=== PATIENT | male | born 1950 | race Caucasian/White ===

== ENCOUNTER → 2018-07-05 | Outpatient (CLI) | payer MEDICARE ==
--- NOTE | 2018-07-06 10:28 | RADONC ---
RADIATION ONCOLOGY CONSULTATION NOTE DATE: 07/05/2018 CHART NUMBER: [id number] DIAGNOSIS: Prostate cancer. STAGE: III B, pT3a, N0, M0, Bally score 7 (4-3), grade group 3, PSA 5.5. ECOG PERFORMANCE STATUS: 0 CONSULTATION NOTE: Mr. Porter is a very pleasant 68-year-old white male with the diagnosis of what appears to be a stage III B, pT3a, N0, M0 moderate to poorly differentiated Bally score 7 (4-3) adenocarcinoma of the prostate with an initial PSA level of 5.5, who is presenting to [facility] status post robotic-assisted radical prostatectomy and lymph node sampling for consideration of postoperative radiation therapy in attempt to increase the likelihood of achieving local control and cure. HISTORY OF PRESENT ILLNESS: The patient was in his usual state of health until he was found to have a PSA level of 5.5. On 10/18/2017, the patient underwent prostatic needle biopsy and pathology revealed a Jhony score 7 (4-3) adenocarcinoma of the prostate involving his left side. All right-sided biopsies appeared to be benign. On 01/20/2018, the patient underwent a robotic prostatectomy and bilateral pelvic lymph node dissection with Dr. Ray Sánchez. Pathology revealed once again a moderate to poorly differentiated Bally score 7 (4-3) adenocarcinoma grade group 3. There was noted to be extracapsular extension present. Seminal vesicles were not involved. The margins of resection were also negative for malignancy. A total of five lymph nodes were sampled and all were negative for malignancy. The tumor was staged as a pT3A tumor with extraprostatic extension present. Following surgery a PSA level done on 03/15/2018 was 0.05. One done on 06/14/2018 was 0.06. The patient was subsequently referred to Dr. Sauceda for discussion of possible postoperative radiation therapy in attempt to increase the likelihood of achieving local control. He was deemed a candidate for this therapy and had been scheduled for simulation tomorrow. The patient reported that he did not wish to travel so far to undergo treatment in [place] and has therefore requested that his treatments be done here. This is why he is appearing to [facility] for re-consultation. PAST MEDICAL HISTORY: The patient's past medical history is positive for arthritis, hypertension and cataracts. ALLERGIES: The patient has NO KNOWN DRUG ALLERGIES. SOCIAL HISTORY: The patient does not smoke cigarettes. He drinks alcohol socially. FAMILY HISTORY: The patient's family history is positive for a father with kidney cancer. REVIEW OF SYSTEMS: The patient's review of systems is noncontributory. Denies nausea, vomiting, fevers, chills, night sweats, diplopia, headaches, anxiety or depression, anorexia, weight loss, visual disturbances, chest pain, urinary or bowel difficulties, bone pain, or neurological problems. PHYSICAL EXAMINATION: The patient is a well-developed, well-nourished male in no acute distress. HEENT exam is normocephalic, atraumatic. Extraocular movements are intact. There is no palpable cervical, supraclavicular, infraclavicular, axillary, or inguinal lymphadenopathy present. Lungs are clear to auscultation and percussion. Heart has a regular rate and rhythm. Abdomen is benign with no hepatosplenomegaly, masses, or tenderness. Rectal examination reveals a normal anal sphincter tone. His prostate bed is smooth with no evidence of nodularity or recurrent disease. Skeletal examination reveals no tenderness to pressure or percussion of the bony skeleton. Extremities reveal no clubbing, cyanosis, or edema. Neurologic exam is grossly intact, as is the remainder of the physical examination. ASSESSMENT: I do agree with the physicians at [facility] that this patient would be a candidate for postoperative radiation therapy. Indeed, he has a grade group 3 disease. There is noted to be extraprostatic extension focally in the left posterior location. His PSA did not become undetectable. These risk factors would qualify him as a candidate for external beam radiation therapy. The patient reports that he is going to be on vacation until 07/18/2018 or so, and therefore, I am scheduling him to initiate treatment planning when he returns. I have reassured him that the physicians at [facility] are of the highest quality, but I understand his reasoning not wishing to make such a long trip every day for all that time. Thank you for allowing us to participate in the care of this very pleasant gentleman. If I could be of any further assistance or provide you with any information, please feel free to contact me at anytime. As always, warm regards nausea. cc: MD Nicanor Breen MD Shirley Tuttle-Malone, DO
== END ==
LOC: M ONCR 09:46
PROVIDERS: ATTEND Radiology Radiation Oncology
DX: Z85.46 Personal history of malignant neoplasm of prostate (principal)

== ENCOUNTER → 2018-08-02 | Outpatient (RCR) | payer MEDICARE ==
[2018-07-18 09:44] LABS: HEMATOCRIT 45.4 % (42.0-52.0); HEMOGLOBIN 15.8 g/dl (13.5-17.5); LYMPH % 32.7 % (24.0-44.0); MEAN CORPUSCULAR HEMOGLOBIN 30.6 pg (27.0-33.0); MEAN CORPUSCULAR HGB CONC 34.8 g/dl (32.0-36.5); MEAN CORPUSCULAR VOLUME 87.9 fl (80.0-96.0); NEUTROPHILS # 4.3 10^3/uL (1.8-7.7); NEUTROPHILS % 56.7 % (36.0-66.0); RED BLOOD COUNT 5.17 10^6/uL (4.30-6.10); WHITE BLOOD COUNT 7.5 10^3/uL (4.0-10.0)
--- NOTE | 2018-07-18 09:59 | RADONC ---
RADIATION ONCOLOGY SIMULATION NOTE DATE: 07/18/2018 CHART NUMBER: [id number] DIAGNOSIS: Prostate cancer. STAGE: IIIB, pathologic T3a, N0, M0, Jhony score 7 (4+3), grade group 3, PSA 5.5. ECOG PERFORMANCE STATUS: 0 SIMULATION NOTE: The patient was placed in a supine position on the CT simulator table and an immobilization device was constructed to stabilize and immobilize the patient for day-to-day treatments. He tolerated this procedure without any untoward side effects. The patient was then scanned at 3 mm intervals through the pelvic area. Contouring will be performed on the images scanned and a treatment plan will be generated with treatments beginning after completion of his treatment plan. cc: MD Nicanor Breen MD Shirley Tuttle-Malone, DO MTDD
--- NOTE | 2018-08-03 08:30 | RADONC ---
RADIATION ONCOLOGY PROGRESS NOTE DATE: 08/01/2018 CHART NUMBER: [id number] Mr. Porter is presently a dose of 720 cGy to his prostate bed and is tolerating treatments quite well at this point with no complaints related to his radiation therapy. He is having no urinary or bowel difficulties and no bone pain. REVIEW OF SYSTEMS: The patient's review of systems is noncontributory. Denies nausea, vomiting, fevers, chills, night sweats, diplopia, headaches, anxiety or depression, anorexia, weight loss, visual disturbances, chest pain, urinary or bowel difficulties, bone pain, or neurological problems. PHYSICAL EXAMINATION: The patient's skin is in good condition with no evidence of moist or dry desquamation. The remainder of his physical exam remains unchanged. Mr. Porter is tolerating treatments quite well, and radiation will continue as scheduled.
== END ==
LOC: M ONCR 07-18 08:52
PROVIDERS: ATTEND Radiology Radiation Oncology
DX: C61 Malignant neoplasm of prostate (principal)

== ENCOUNTER → 2018-09-02 | Outpatient (RCR) | payer MEDICARE ==
--- NOTE | 2018-08-08 10:54 | RADONC ---
RADIATION ONCOLOGY PROGRESS NOTE DATE: 08/08/2018 CHART NUMBER: [id number] Mr. Porter is presently at a dose 1620 cGy to his prostate bed and is tolerating treatments quite well at this point with no complaints related to his radiation therapy. He is having no urinary or bowel difficulties, and no bone pain. REVIEW OF SYSTEMS: The patient's review of systems is noncontributory. He denies nausea, vomiting, fevers, chills, night sweats, diplopia, headaches, anxiety or depression, anorexia, weight loss, visual disturbances, chest pain, urinary or bowel difficulties, bone pain or neurological problems. PHYSICAL EXAMINATION: The patient's skin is in good condition with no evidence of radiation change present. The remainder of his physical exam remains unchanged. Mr. Porter is tolerating treatments quite well and radiation will continue as scheduled.
--- NOTE | 2018-08-15 10:58 | RADONC ---
RADIATION ONCOLOGY PROGRESS NOTE DATE: 08/15/2018 CHART NUMBER: [id number] PROGRESS NOTE: Mr. Porter with a diagnosis of adenocarcinoma of prostate is currently receiving postoperative radiotherapy to prevent a local regional recurrence. His dose to date is 2520 cGy of an anticipated 6660 cGy. As stated the patient feels things are going well. Review of systems reveals that the patient denies any nausea, vomiting, diarrhea, dysuria, hematuria or blood per rectum. His energy level is excellent and he is able to maintain most day-to-day activities without any alteration of his lifestyle. Skin irritation is denied. EXAMINATION FINDINGS: The skin within the irradiated volume shows no evidence of erythema and certainly no focal desquamation. The remainder of the physical examination is unchanged. IMPRESSION: Tolerating therapy well. PLAN: Treatments to continue. MTDD
--- NOTE | 2018-08-22 09:48 | RADONC ---
RADIATION ONCOLOGY PROGRESS NOTE DATE: 08/22/2018 CHART NUMBER: [id number] Mr. Porter is presently a dose of 3420 cGy to his prostate bed and is tolerating treatments quite well at this point with no complaints related to his radiation therapy. He is having no urinary or bowel difficulties. No bone pain. The patient's review of systems is noncontributory. Denies nausea, vomiting, fevers, chills, night sweats, diplopia, headaches, anxiety or depression, anorexia, weight loss, visual disturbances, chest pain, urinary or bowel difficulties, bone pain, or neurological problems. PHYSICAL EXAMINATION: The patient's skin is in good condition with no evidence of moist or dry desquamation. The remainder of his physical exam remains unchanged. Mr. Porter is tolerating treatments quite well, and radiation will continue as scheduled.
--- NOTE | 2018-08-30 09:31 | RADONC ---
RADIATION ONCOLOGY PROGRESS NOTE DATE: 08/30/2018 CHART NUMBER: [id number] Mr. Porter is presently at a dose of 4320 cGy to his prostate bed and is tolerating treatments quite well at this point with no complaints related to his radiation therapy. He is having no urinary or bowel difficulties and no bone pain. REVIEW OF SYSTEMS: The patient's review of systems is noncontributory. He denies nausea, vomiting, fevers, chills, night sweats, diplopia, headaches, anxiety or depression, anorexia, weight loss, visual disturbances, chest pain, urinary or bowel difficulties, bone pain or neurological problems. PHYSICAL EXAMINATION: The patient's skin is in good condition with no evidence of moist or dry desquamation. The remainder of his physical exam remains unchanged. Mr. Porter is tolerating treatments quite well and radiation will continue as scheduled.
[~2018-09-02] MED LIST: SILV40CR EXT
== END ==
LOC: M ONCR 08-03 12:44
PROVIDERS: ATTEND Radiology Radiation Oncology
DX: C61 Malignant neoplasm of prostate (principal)

== ENCOUNTER 2018-09-16 08:41 | Outpatient (RCR) | payer MEDICARE ==
--- NOTE | 2018-09-05 12:31 | RADONC ---
RADIATION ONCOLOGY PROGRESS NOTE DATE: 09/05/2018 CHART NUMBER: [id number] PROGRESS NOTE: Mr. Porter with a diagnosis of adenocarcinoma of the prostate is currently receiving local regional radiotherapy directed for local regional control. His current dose is 5040 centigray of an anticipated 6660 centigray. The treatments are generally been quite well tolerated as he denies any major side effects. REVIEW OF SYSTEMS: He specifically denies any nausea, vomiting, diarrhea, dysuria, hematuria or blood per rectum. His energy level is such that he is able to maintain most of his day-to-day activities without any alteration of his lifestyle. Skin irritation is denied as our issues with anxiety, depression, headaches, diplopia, night sweats, anorexia, weight loss, visual disturbances, chest pain, and other urinary or bowel difficulties. EXAMINATION FINDINGS: The skin within the irradiated volume shows no evidence of erythema and certainly no focal desquamation. The remainder of the physical examination is unchanged. IMPRESSION: Tolerating therapy well. PLAN: Treatments to continue.
--- NOTE | 2018-09-12 14:23 | RADONC ---
RADIATION ONCOLOGY PROGRESS NOTE DATE: 09/12/2018 CHART #: [id number] Mr. Porter is presently at a dose of 5940 cGy to his prostate bed and is tolerating treatments quite well at this point with no complaints related to his radiation therapy. He is having no significant urinary or bowel difficulties. No bone pain. REVIEW OF SYSTEMS: The patient's review of systems is noncontributory. Denies nausea, vomiting, fevers, chills, night sweats, diplopia, headaches, anxiety or depression, anorexia, weight loss, visual disturbances, chest pain, urinary or bowel difficulties, bone pain, or neurological problems. PHYSICAL EXAMINATION: The patient's skin is in good condition with no evidence of moist or dry desquamation. The remainder of his physical exam remains unchanged. Mr. Porter is tolerating treatments quite well and radiation will continue as scheduled.
--- NOTE | 2018-09-17 00:06 | RADONC ---
RADIATION ONCOLOGY TREATMENT SUMMARY DATE: 09/16/2018 CHART NUMBER: [id number] DIAGNOSIS: Prostate cancer. STAGE: III B, pT3a, N0, M0, Polk score 7 (4-3), grade group 3, PSA 5.5 ECOG PERFORMANCE STATUS: 0. TREATMENT SUMMARY: Mr. Porter is a very pleasant 68-year-old white male with a diagnosis of what appears to be a stage III B, pT3a, N0, M0, moderate to poorly differentiated Jhony score 7 (4-3) adenocarcinoma of the prostate with initial PSA level of 5.5 who presented to us status post robotic-assisted radical prostatectomy and lymph node sampling for consideration of postoperative radiation therapy in an attempt to increase the likelihood of achieving local control. We treated the patient to his prostate bed for a total dose of 6660 cGy delivered in 37 fractions of 180 cGy each over 51 elapsed days from 07/27/2018 through 09/16/2018. The patient's prostate bed was treated on a linear accelerator utilizing a 15 MV photon beam via a four-field technique with anterior, posterior, left and right lateral gaston. Following completion of a dose of 4500 cGy, the prostate bed was further coned down for the final 2160 cGy in order to maintain the small bowel and other structures within their tolerance limits. Mr. Porter tolerated his treatments quite well and was able to complete therapy as prescribed without interruption. I have scheduled the patient to see me again in 1 month for further followup. He will also continue to be followed by his other physicians as well. Thank you for allowing us to participate in the care of this very pleasant gentleman. If I could be of any further assistance or provide you with any information, please feel free to contact me at anytime. As always, warm regards. cc: MD Nicanor Breen MD Shirley Tuttle-Malone, DO
== END 2018-10-02 ==
LOC: M ONCR 08:41
PROVIDERS: ATTEND Radiology Radiation Oncology
DX: C61 Malignant neoplasm of prostate (principal)

== ENCOUNTER → 2018-10-19 | Outpatient (CLI) | payer MEDICARE ==
--- NOTE | 2018-10-21 08:06 | RADONC ---
RADIATION ONCOLOGY PROGRESS NOTE DATE: 10/19/2018 CHART NUMBER: [id number] DIAGNOSIS: Prostate cancer. STAGE: Stage III B, [id number] Jhony score 7 (4+3), grade group III, PSA 5.5. ECOG PERFORMANCE STATUS: 0. FOLLOWUP NOTE: Mr. Porter is a very pleasant 68-year-old white male with the diagnosis of what appears to be a stage III B, [id number], moderate to poorly differentiated [place] score 7 (3+4) adenocarcinoma of prostate with an initial PSA level 5.5 who is presenting to us today for routine followup visit 1 month post completion of external beam radiation therapy. The patient presents today reporting that he is doing quite well with no significant difficulties related to his radiation therapy. He does have some irritation still with bowel movements. The patient's review of systems is positive for is a continued slight rectal irritation, but is otherwise noncontributory. Denies nausea, vomiting, fevers, chills, night sweats, diplopia, headaches, anxiety or depression, anorexia, weight loss, visual disturbances, chest pain, urinary or bowel difficulties, bone pain, or neurological problems. PHYSICAL EXAMINATION: The patient is a well-developed, well-nourished male in no acute distress. HEENT exam is normocephalic, atraumatic. Extraocular movements are intact. There is no palpable cervical, supraclavicular, infraclavicular, axillary, or inguinal lymphadenopathy present. Lungs are clear to auscultation and percussion. Heart has a regular rate and rhythm. Abdomen is benign with no hepatosplenomegaly, masses, or tenderness. Rectal examination reveals a normal anal sphincter tone. His prostate bed is smooth with no evidence of nodularity or recurrent disease. Skeletal examination reveals no tenderness to pressure or percussion of the bony skeleton. Extremities reveal no clubbing, cyanosis, or edema. Neurologic exam is grossly intact, as is the remainder of the physical examination. ASSESSMENT: The patient is scheduled to be seen by his medical oncologist in December, and I have therefore scheduled him for a followup visit in our office next July. We will continue to follow his PSAs closely. His present PSA done on 10/14/2018 was 0.06. cc: MD Nicanor Breen MD Shirley Tuttle-Malone, DO
== END ==
LOC: M ONCR 10:12
PROVIDERS: ATTEND Radiology Radiation Oncology
DX: C61 Malignant neoplasm of prostate (principal)

== ENCOUNTER → 2019-07-26 | Outpatient (CLI) | payer MEDICARE ==
--- NOTE | 2019-07-26 10:52 | RADONC ---
RADIATION ONCOLOGY FOLLOWUP NOTE DATE: 07/26/2019 This is a telemedicine visit. The patient was informed of the risks including security breech, technological failure, inability to perform a comprehensive physical exam which could delay or prevent an accurate diagnosis, and potential complications from treatment decisions rendered over a telemedicine platform. The patient understands and consented to the use of telehealth services phone only. CHART NUMBER: [id number] DIAGNOSIS: Prostate cancer. STAGE: III B, pT3a, N0, M0, Spearman score 7 (4 + 3), grade group 3, PSA 5.5. ECOG PERFORMANCE STATUS: 0 FOLLOWUP NOTE: Mr. Porter is a very pleasant 69-year-old white male with the diagnosis of a stage III B, pT3a, N0, M0 moderate to poorly differentiated Jhony score 7 (4 + 3) adenocarcinoma of the prostate with initial PSA level of 5.5 who is presenting to us today for followup visit 11 months post completion of external beam radiation therapy. The patient presents today by telephone reporting that he was just seen by Dr. Sánchez 5 weeks ago. He is continuing his close followup with his urologist Dr. Ray Sánchez MD. REVIEW OF SYSTEMS: The patient's review of systems is noncontributory. Denies nausea, vomiting, fevers, chills, night sweats, diplopia, headaches, anxiety or depression, anorexia, weight loss, visual disturbances, chest pain, urinary or bowel difficulties, bone pain, or neurological problems. PHYSICAL EXAMINATION: Physical examination clearly was deferred at this point as per COVID-19 precautions. This was a telephone interview. ASSESSMENT: The patient is clinically stable at this point and is being followed closely by his urologist. In light of my impending fci, I am discharging him from my followup except on a p.r.n. basis. cc: MD Nicanor Breen MD Shirley Tuttle-Malone, DO
== END ==
LOC: M ONCR 09:52
PROVIDERS: ATTEND Radiology Radiation Oncology
DX: C61 Malignant neoplasm of prostate (principal)

== ENCOUNTER → 2021-02-03 | Outpatient (CLI) | payer MEDICARE ==
[~2021-02-03] MED LIST changes: +ATOR1TAB21 PO; +RAMI1CAP24 PO
== END ==
LOC: M LABSMTC 09:55
PROVIDERS: ATTEND Anesthesiology
DX: Z01.812 Encounter for preprocedural laboratory examination (principal); Z11.52 Encounter for screening for COVID-19

== ENCOUNTER 2021-02-07 08:18 | Day surgery (SDC) | payer MEDICARE ==
[~2021-02-07] VITALS: Ht 167.6 cm; Wt 111.1 kg
[~2021-02-07 08:18] MED LIST changes: +LIDOCAINE 2% 100MG/5ML SDV (FOR ANES.) As Ordered ONE; +NS 1,000 ML IV ONE; +propofoL 200 MG/20 ML VIAL As Ordered ONE
[2021-02-07] MEDS ORDERED: PHENYLephrine 500MCG 5ML (100MCG/ML) SYRINGE As Ordered ONE (09:57)
--- NOTE | 2021-02-07 10:28 | ROOR ---
Patient Name: Terry Porter Procedure Date: 02/07/2021 9:39 AM Date of : 1950 Age: 70 Room: [facility] Gender: Male Note Status: Finalized Procedure: Colonoscopy Indications: High risk colon cancer surveillance: Personal history of colonic polyps Providers: Chris De Souza MD Referring MD: Ruby Andrade MD Requesting Provider: Medicines: Monitored Anesthesia Care Complications: No immediate complications. Procedure: Pre-Anesthesia Assessment: - Prior to the procedure, a History and Physical was performed, and patient medications and allergies were reviewed. The patient is competent. The risks and benefits of the procedure and the sedation options and risks were discussed with the patient. All questions were answered and informed consent was obtained. Patient identification and proposed procedure were verified by the physician, the nurse and the anesthesiologist in the procedure room. Mental Status Examination: alert and oriented. Airway Examination: normal oropharyngeal airway and neck mobility. Respiratory Examination: clear to auscultation. CV Examination: normal. Prophylactic Antibiotics: The patient does not require prophylactic antibiotics. Prior Anticoagulants: The patient has taken no previous anticoagulant or antiplatelet agents. ASA Grade Assessment: II - A patient with mild systemic disease. After reviewing the risks and benefits, the patient was deemed in satisfactory condition to undergo the procedure. The anesthesia plan was to use monitored anesthesia care (MAC). Immediately prior to administration of medications, the patient was re-assessed for adequacy to receive sedatives. The heart rate, respiratory rate, oxygen saturations, blood pressure, adequacy of pulmonary ventilation, and response to care were monitored throughout the procedure. The physical status of the patient was re-assessed after the procedure. The Colonoscope was introduced through the anus and advanced to the terminal ileum, with identification of the appendiceal orifice and IC valve. The colonoscopy was performed without difficulty. The patient tolerated the procedure well. The quality of the bowel preparation was good. The terminal ileum, ileocecal valve, appendiceal orifice, and rectum were photographed. Scope insertion time was 2 minutes. Scope withdrawal time was 9 minutes. The total duration of the procedure was 12 minutes. Findings: The perianal and digital rectal examinations were normal. The terminal ileum appeared normal. Three sessile polyps were found in the ascending colon. The polyps were 5 to 10 mm in size. These polyps were removed with a hot snare. Resection and retrieval were complete. Verification of patient identification for the specimen was done by the physician and nurse using the patient's name, date and medical record number. Estimated blood loss was minimal. Five sessile polyps were found in the descending colon and transverse colon. The polyps were 4 to 8 mm in size. These polyps were removed with a hot snare. Resection and retrieval were complete. Non-bleeding external and internal hemorrhoids were found during retroflexion. The hemorrhoids were medium-sized and Grade II (internal hemorrhoids that prolapse but reduce spontaneously). Impression: - The examined portion of the ileum was normal. - Three 5 to 10 mm polyps in the ascending colon, removed with a hot snare. Resected and retrieved. - Five 4 to 8 mm polyps in the descending colon and in the transverse colon, removed with a hot snare. Resected and retrieved. - Non-bleeding external and internal hemorrhoids. Recommendation: - Patient has a contact number available for emergencies. The signs and symptoms of potential delayed complications were discussed with the patient. Return to normal activities tomorrow. Written discharge instructions were provided to the patient. - High fiber diet. - Continue present medications. - Await pathology results. - Repeat colonoscopy in 3 years for surveillance based on pathology results. - Telephone GI clinic for pathology results in 2 weeks. - Return to GI clinic in [facility] (address: [address] [place] [address], 1st floor, [place], [place],[address]) in 4 -- 6 weeks. Please call GI clinic @ [phone] for apppointment date and time. - Return to primary care physician. Procedure Code(s): --- Professional --- 93340, Colonoscopy, flexible; with removal of tumor(s), polyp(s), or other lesion(s) by snare technique Diagnosis Code(s): --- Professional --- Z86.010, Personal history of colonic polyps K64.1, Second degree hemorrhoids K63.5, Polyp of colon CPT copyright 2019 [employer]. All rights reserved. The codes documented in this report are preliminary and upon first sampler review may be revised to meet current compliance requirements. Chris De Souza MD Chris De Souza MD 02/07/2021 10:27:25 AM Electronically signed by Chris De Souza MD Number of Addenda: 0 Note Initiated On: 02/07/2021 9:39 AM Estimated Blood Loss: Estimated blood loss was minimal.
[2021-02-07 10:44] VITALS: BP 118/62
== END 2021-02-07 10:50 | disposition home or self-care (01) ==
LOC: M OPP 08:18
PROVIDERS: ATTEND Internal Medicine Gastroenterology
DX: K63.5 Polyp of colon (principal); K64.1 Second degree hemorrhoids
CPT/HCPCS: 45385; 88305; J2370